=== PATIENT | female | born 1935 | race Caucasian/White ===

== ENCOUNTER 2017-09-11 11:18 | Inpatient (IN) | payer OTHER ==
[2017-09-11 12:54] LABS: BASO # 0.1 K/uL (0.0-0.2); BASO % 0.8 % (0.0-2.0); EOS % 0.1 % (0.0-4.0); HEMOGLOBIN 12.1 g/dL (11.0-16.0); LYMPH # 0.9 K/uL (1.0-4.3); LYMPH % 5.8 % (20.0-40.0); MEAN CELL VOLUME 83.5 fL (81.0-99.0); MEAN CORPUSCULAR HEMOGLOBIN 27.4 pg (27.0-31.0); MEAN CORPUSCULAR HGB CONC 32.8 g/dL (33.0-37.0); MEAN PLATELET VOLUME 8.3 fL (7.2-11.7); MONO # 0.7 K/uL (0.0-0.8); MONO % 4.6 % (0.0-10.0); NEUT # 14.2 K/uL (1.8-7.0); NEUT % 88.7 % (50.0-75.0); PLATELET COUNT 257 K/uL (130-400); RBC 4.42 Mil/uL (3.80-5.20); RED CELL DISTRIBUTION WIDTH 13.9 % (11.5-14.5)
[2017-09-11 13:07] LABS: ALB/GLOB RATIO 1.2 (1.0-2.1); ALBUMIN 4.2 g/dL (3.5-5.0); ALT/SGPT 22 U/L (9-52); AST/SGOT 24 U/L (14-36); BLOOD UREA NITROGEN 14 mg/dL (7-17); CALCIUM 9.2 mg/dl (8.6-10.4); GFR AFRICAN-AMERICAN > 60; GFR NON-AFRICAN AMERICAN > 60
[2017-09-11 13:29] LABS: LYMPHOCYTE 8 % (20-40); MONOCYTE 3 % (0-10); NEUTROPHIL 89 % (50-75); PLATELET ESTIMATE NORMAL (NORMAL); TOTAL CELLS COUNTED 100
--- NOTE | 2017-09-11 13:31 | C.PDOC ---
History Of Present Illness Patient presents to ED with c/o coughing blood since earlier today. Patient states 3 days ago she had cold like symptoms saw PMD, was given Antibiotics and Cough medicine. Patient states coughed and noted blood in phlegm with associated fever. Patient denies chest pain, sob, nausea, vomiting or any other complaints at this time. Time Seen by Provider: 09/11/17 11:51 Chief Complaint (Nursing): Cough, Cold, Congestion History Per: Patient History/Exam Limitations: no limitations Onset/Duration Of Symptoms: Hrs Current Symptoms Are (Timing): Still Present Severity: Moderate Recent travel outside of the [place]: No Past Medical History Reviewed: Historical Data, Nursing Documentation, Vital Signs Vital Signs: Last Vital Signs Temp 98.5 F 09/11/17 17:30 Pulse 67 09/11/17 17:30 Resp 20 09/11/17 17:30 BP 110/65 09/11/17 17:30 Pulse Ox 97 09/11/17 17:30 - Medical History PMH: Asthma, Depression, Gastritis, HTN, Hyperlipidemia, Hypothyroidism, Sleep Apnea Surgical History: No Surg Hx Family History: States: No Known Family Hx - Social History Hx Alcohol Use: No Hx Substance Use: No - Immunization History Hx Tetanus Toxoid Vaccination: No Hx Influenza Vaccination: Yes (01/20/2017) Hx Pneumococcal Vaccination: Yes (07/25/2015) Review Of Systems Constitutional: Positive for: Fever Cardiovascular: Negative for: Chest Pain Respiratory: Positive for: Cough. Negative for: Shortness of Breath Gastrointestinal: Negative for: Nausea, Vomiting Skin: Negative for: Rash Neurological: Negative for: Weakness, Numbness Physical Exam - Physical Exam Appears: Non-toxic, No Acute Distress Skin: Warm, Dry, No Rash Head: Atraumatic, Normacephalic Oral Mucosa: Moist Neck: Normal ROM, Supple Cardiovascular: Rhythm Regular Respiratory: Normal Breath Sounds, No Rales, No Rhonchi, No Wheezing Gastrointestinal/Abdominal: Soft, No Tenderness, No Guarding, No Rebound Extremity: Normal ROM, Capillary Refill (<2 seconds) Neurological/Psych: Oriented x3, Normal Speech, Normal Cognition ED Course And Treatment - Laboratory Results Result Diagrams: 09/11/17 12:46 09/11/17 12:46 O2 Sat by Pulse Oximetry: 98 (RA) Pulse Ox Interpretation: Normal Medical Decision Making Medical Decision Making: Plan: EKG, CXR, Tylenol administered Blood cultures ordered. The case was discussed with Octavia Randhawa who agrees to admit the patient. Disposition - Disposition Disposition: HOSPITALIZED Disposition Time: 13:00 Condition: STABLE - POA Present On Arrival: None - Clinical Impression Clinical Impression: Pneumonia - PA / CREPE [employer]ER / Resident Statement MD/DO has reviewed & agrees with the documentation as recorded. - Scribe Statement The provider has reviewed the documentation as recorded by the Sarahiibpawel Frye All medical record entries made by the Hermes were at my direction and personally dictated by me. I have reviewed the chart and agree that the record accurately reflects my personal performance of the history, physical exam, medical decision making, and the department course for this patient. I have also personally directed, reviewed, and agree with the discharge instructions and disposition.
[2017-09-11 13:35] LABS: B-TYPE NATRIURETIC PEPTIDE 296 pg/mL (0-900)
--- NOTE | 2017-09-11 14:12 | RAD ---
PROCEDURE: CHEST RADIOGRAPH, 1 VIEW HISTORY: SOB, cough COMPARISON: None available. FINDINGS: LUNGS: The lungs are hyperinflated and there is peribronchial thickening with chronic changes in both lungs. There is bibasilar atelectasis. No focal consolidation. PLEURA: No pneumothorax or pleural fluid seen. CARDIOVASCULAR: There is mild cardiomegaly. OSSEOUS STRUCTURES: No significant abnormalities. VISUALIZED UPPER ABDOMEN: Normal. OTHER FINDINGS: None. IMPRESSION: No active pulmonary disease. COPD.
[2017-09-11] MEDS ORDERED: cefTRIAXone IV 1 gm in Dextros 50 ML IV ONE (14:28)
[2017-09-11] MEDS ORDERED: cefTRIAXone IV 1 gm in Dextros 50 ML IVPB ONE (14:50)
[2017-09-11] MEDS ORDERED: Azithromycin 500mg/250ML NS 500 MG/250 ML BAG IV ONE (15:00)
--- NOTE | 2017-09-11 15:02 | CP.PCM.HP ---
History of Present Illness - History of Present Illness History of Present Illness: cc; Chills and blood in sptum PT presented to my office on 5/3 co chills, and coughing up sptum with blood. She was on the last day of a 3 days course of zithromax for bronchitis. PT feels better today less nausea +still sputum with some blood Medical Hx: Memory loss Hyperlipidemia Hypertension Hypothyroidism Acute gastritis Sleep apnea Asthma Diabetes Depression Cerebrovascular disease Surgical Hx: Cataract surgery Tubaligation Family Hx: Daughter Lung issues/ smoker Social Hx: Neg. Smoke Neg. ETOH Neg. Drugs Allergies: none Medications: Hydralazine 100mg Chlotalidone 25mg Omeprazole 20 Levothyroxine 125mcg Aspirin 81mg Xanax 0.25mg Present on Admission - Present on Admission Any Indicators Present on Admission: No Review of Systems - Constitutional Constitutional: Chills - EENT Nose/Mouth/Throat: absent: Nasal Congestion - Cardiovascular Cardiovascular: absent: Chest Pain, Claudication - Respiratory Respiratory: Cough, Change in Mucous Color - Gastrointestinal Gastrointestinal: Nausea. absent: Abdominal Pain - Genitourinary Genitourinary: absent: Change in Urinary Stream Past Patient History - Past Social History Smoking Status: Former Smoker - CARDIAC Hx Hypertension: Yes - PULMONARY Hx Asthma: Yes Hx Sleep Apnea: Yes - NEUROLOGICAL Hx Neurological Disorder: Yes Other/Comment: Cerebrovascular disease - ENDOCRINE/METABOLIC Hx Hypothyroidism: Yes - GASTROINTESTINAL Hx Gastritis: Yes - PSYCHIATRIC Hx Depression: Yes Hx Substance Use: No - SURGICAL HISTORY Hx Cataract Extraction: Yes (2010) Hx Tubal Ligation: Yes (1969) - ANESTHESIA Hx Anesthesia: Yes Hx Anesthesia Reactions: No Meds Allergies/Adverse Reactions: Allergies Allergy/AdvReac Type Severity Reaction Status Date / Time No Known Allergies Allergy Unverified 11/17/13 16:32 Physical Exam - Constitutional Appears: Non-toxic - Eye Exam Eye Exam: Normal appearance - ENT Exam ENT Exam: Mucous Membranes Moist - Respiratory Exam Respiratory Exam: Clear to Auscultation Bilateral - Cardiovascular Exam Cardiovascular Exam: REGULAR RHYTHM. absent: JVD Results - Vital Signs Recent Vital Signs: Last Vital Signs Temp 99.4 F 09/11/17 13:00 Pulse 67 09/11/17 15:00 Resp 20 09/11/17 15:00 BP 115/40 L 09/11/17 15:00 Pulse Ox 97 09/11/17 15:00 - Labs Result Diagrams: 09/11/17 12:46 09/11/17 12:46 Labs: Laboratory Results - last 24 hr 09/11/17 09/11/17 09/11/17 12:46 12:46 12:46 WBC 16.0 H RBC 4.42 Hgb 12.1 Hct 36.9 MCV 83.5 MCH 27.4 MCHC 32.8 L RDW 13.9 Plt Count 257 MPV 8.3 Neut % (Auto) 88.7 H Lymph % (Auto) 5.8 L Brooks % (Auto) 4.6 Eos % (Auto) 0.1 Baso % (Auto) 0.8 Neut # (Auto) 14.2 H Lymph # (Auto) 0.9 L Brooks # (Auto) 0.7 Eos # (Auto) 0.0 Baso # (Auto) 0.1 Neutrophils % (Manual) 89 H Lymphocytes % (Manual) 8 L Monocytes % (Manual) 3 Platelet Estimate Normal Sodium 138 Potassium 3.3 L Chloride 97 L Carbon Dioxide 31 H Anion Gap 14 BUN 14 Creatinine 0.7 Est GFR ( Amer) > 60 Est GFR (Non-Af Amer) > 60 Random Glucose 87 Lactic Acid 2.1 Calcium 9.2 Total Bilirubin 0.6 AST 24 ALT 22 Alkaline Phosphatase 95 Troponin I < 0.0120 NT-Pro-B Natriuret Pep 296 Total Protein 7.8 Albumin 4.2 Globulin 3.6 Albumin/Globulin Ratio 1.2 Assessment & Plan - Assessment and Plan (Free Text) Assessment: Pnemonia wbc 16 not able to keep po admitted 09/11/17 on iv abx doing better cont ivf resume home meds bp stable
[2017-09-11 15:03] LABS: SQUAMOUS EPITHIAL 1 /hpf (0-5); URINE BACTERIA RARE (<OCC)
[2017-09-11 15:04] LABS: URINE BILIRUBIN NEGATIVE (NEGATIVE); URINE BLOOD NEGATIVE (NEGATIVE); URINE CLARITY Clear (Clear); URINE COLOR Yellow (YELLOW); URINE GLUCOSE (UA) NORMAL (Normal); URINE LEUKOCYTE ESTERASE 1+ Leu/uL (Negative); URINE PROTEIN NEGATIVE (NEGATIVE); URINE UROBILINOGEN NORMAL mg/dL (0.2-1.0)
[2017-09-11] MEDS: Potassium Chloride 20 mEq ER Tab PO SCH (15:23)
[2017-09-11] MEDS: Enoxaparin 40 mg Syringe SC SCH (15:24)
[2017-09-11] MEDS: Potassium Chloride 20 MEQ in Sodium Chloride 0.45% 1,000 ML IV SCH (15:39)
[2017-09-11] MEDS ORDERED: Vancomycin 1 gm/NS 200 ml 1 GM/200 ML BAG IVPB ONE (16:00)
[2017-09-11 17:31] VITALS: RESP 20
[2017-09-12] MEDS: Albuterol-Ipratrop 3 mg / 0.5 (3 ml) UD INH SCH ×4 (01:03→19:11)
[2017-09-12] MEDS: Enoxaparin 40 mg Syringe SC SCH (10:03)
[2017-09-12] MEDS: Potassium Chloride 20 mEq ER Tab PO SCH (10:03)
[2017-09-12] MEDS: Potassium Chloride 20 MEQ in Sodium Chloride 0.45% 1,000 ML IV SCH ×2 (11:45→14:37)
[2017-09-12] MEDS ORDERED: Azithromycin 500mg/250ML NS 500 MG/250 ML BAG IVPB SCH (15:00)
[2017-09-12] MEDS: Metoprolol Succinate 50 mg XL Tab PO SCH (15:22)
--- NOTE | 2017-09-12 23:24 | CARD ---
APPROVED REPORT EKG Measurement Heart [id number] <Conclusion> Normal sinus rhythm Baseline artifact Otherwise normal
[2017-09-13 01:21] VITALS: O2SAT 96
[2017-09-13] MEDS: Albuterol-Ipratrop 3 mg / 0.5 (3 ml) UD INH SCH ×3 (02:03→13:44)
[2017-09-13] MEDS: Levothyroxine 125 MCG TAB PO SCH ×2 (06:29→06:31)
[2017-09-13 07:20] LABS: BASO # 0.1 K/uL (0.0-0.2); BASO % 0.8 % (0.0-2.0); EOS # 0.3 K/uL (0.0-0.7); EOS % 3.9 % (0.0-4.0); HEMOGLOBIN 11.8 g/dL (11.0-16.0); LYMPH # 2.4 K/uL (1.0-4.3); LYMPH % 33.5 % (20.0-40.0); MEAN CORPUSCULAR HEMOGLOBIN 27.7 pg (27.0-31.0); MEAN PLATELET VOLUME 7.9 fL (7.2-11.7); MONO # 0.5 K/uL (0.0-0.8); MONO % 7.4 % (0.0-10.0); NEUT # 3.9 K/uL (1.8-7.0); NEUT % 54.4 % (50.0-75.0); NRBC % 0.1 % (0.0-2.0); RBC 4.24 Mil/uL (3.80-5.20); RED CELL DISTRIBUTION WIDTH 13.9 % (11.5-14.5); WHITE BLOOD COUNT 7.2 K/uL (4.8-10.8)
[2017-09-13 07:35] LABS: BLOOD UREA NITROGEN 14 mg/dL (7-17); CALCIUM 9.2 mg/dl (8.6-10.4); GFR AFRICAN-AMERICAN > 60; GFR NON-AFRICAN AMERICAN > 60
[2017-09-13] MEDS: Potassium Chloride 20 MEQ in Sodium Chloride 0.45% 1,000 ML IV SCH (08:00)
[2017-09-13 08:32] VITALS: BP 108/66; PULSE 73; TEMP 98
[2017-09-13] MEDS: Enoxaparin 40 mg Syringe SC SCH (10:45)
[2017-09-13] MEDS: Metoprolol Succinate 50 mg XL Tab PO SCH (10:52)
[2017-09-13] MEDS: Potassium Chloride 20 mEq ER Tab PO SCH (10:52)
--- NOTE | 2017-09-13 12:42 | CP.PCM.DIS ---
Provider - Provider Date of Admission: 09/11/17 14:31 Attending physician: Sintia Dudley MD Time Spent in preparation of Discharge (in minutes): 30 Hospital Course - Lab Results Lab Results: Micro Results 09/11/17 12:00 Blood Blood Culture - Preliminary NO GROWTH AFTER 24 HOURS 09/11/17 13:00 Blood Blood Culture - Preliminary NO GROWTH AFTER 24 HOURS 09/11/17 Unknown Urine Urine Culture - Final No Growth (<1,000 CFU/ML) Most Recent Lab Values WBC 7.2 K/uL (4.8-10.8) D 09/13/17 07:07 RBC 4.24 Mil/uL (3.80-5.20) 09/13/17 07:07 Hgb 11.8 g/dL (11.0-16.0) 09/13/17 07:07 Hct 35.6 % (34.0-47.0) 09/13/17 07:07 MCV 84.0 fL (81.0-99.0) 09/13/17 07:07 MCH 27.7 pg (27.0-31.0) 09/13/17 07:07 MCHC 33.0 g/dL (33.0-37.0) 09/13/17 07:07 RDW 13.9 % (11.5-14.5) 09/13/17 07:07 Plt Count 252 K/uL (130-400) 09/13/17 07:07 MPV 7.9 fL (7.2-11.7) 09/13/17 07:07 Neut % (Auto) 54.4 % (50.0-75.0) 09/13/17 07:07 Lymph % (Auto) 33.5 % (20.0-40.0) 09/13/17 07:07 [place] % (Auto) 7.4 % (0.0-10.0) 09/13/17 07:07 Eos % (Auto) 3.9 % (0.0-4.0) 09/13/17 07:07 Baso % (Auto) 0.8 % (0.0-2.0) 09/13/17 07:07 Neut # (Auto) 3.9 K/uL (1.8-7.0) 09/13/17 07:07 Lymph # (Auto) 2.4 K/uL (1.0-4.3) 09/13/17 07:07 [place] # (Auto) 0.5 K/uL (0.0-0.8) 09/13/17 07:07 Eos # (Auto) 0.3 K/uL (0.0-0.7) 09/13/17 07:07 Baso # (Auto) 0.1 K/uL (0.0-0.2) 09/13/17 07:07 Neutrophils % (Manual) 89 % (50-75) H 09/11/17 12:46 Lymphocytes % (Manual) 8 % (20-40) L 09/11/17 12:46 Monocytes % (Manual) 3 % (0-10) 09/11/17 12:46 Platelet Estimate Normal (NORMAL) 09/11/17 12:46 Sodium 144 mmol/L (132-148) 09/13/17 07:07 Potassium 4.4 mmol/L (3.6-5.2) 09/13/17 07:07 Chloride 101 mmol/L (98-107) 09/13/17 07:07 Carbon Dioxide 34 mmol/L (22-30) H 09/13/17 07:07 Anion Gap 13 (10-20) 09/13/17 07:07 BUN 14 mg/dL (7-17) 09/13/17 07:07 Creatinine 0.6 mg/dL (0.7-1.2) L 09/13/17 07:07 Est GFR ( Amer) > 60 09/13/17 07:07 Est GFR (Non-Af Amer) > 60 09/13/17 07:07 Random Glucose 96 mg/dL (65-105) 09/13/17 07:07 Lactic Acid 2.1 mmol/L (0.7-2.1) 09/11/17 12:46 Calcium 9.2 mg/dl (8.6-10.4) 09/13/17 07:07 Magnesium 2.0 mg/dL (1.6-2.3) 09/13/17 07:07 Total Bilirubin 0.6 mg/dL (0.2-1.3) 09/11/17 12:46 AST 24 U/L (14-36) 09/11/17 12:46 ALT 22 U/L (9-52) 09/11/17 12:46 Alkaline Phosphatase 95 U/L (38-126) 09/11/17 12:46 Troponin I < 0.0120 ng/mL (0.00-0.120) 09/11/17 12:46 NT-Pro-B Natriuret Pep 296 pg/mL (0-900) 09/11/17 12:46 Total Protein 7.8 g/dL (6.3-8.3) 09/11/17 12:46 Albumin 4.2 g/dL (3.5-5.0) 09/11/17 12:46 Globulin 3.6 gm/dL (2.2-3.9) 09/11/17 12:46 Albumin/Globulin Ratio 1.2 (1.0-2.1) 09/11/17 12:46 Urine Color Yellow (YELLOW) 09/11/17 14:43 Urine Clarity Clear (Clear) 09/11/17 14:43 Urine pH 8.0 (5.0-8.0) 09/11/17 14:43 Ur Specific [place] 1.012 (1.003-1.030) 09/11/17 14:43 Urine Protein Negative mg/dL (NEGATIVE) 09/11/17 14:43 Urine Glucose (UA) Normal mg/dL (Normal) 09/11/17 14:43 Urine Ketones Negative mg/dL (NEGATIVE) 09/11/17 14:43 Urine Blood Negative (NEGATIVE) 09/11/17 14:43 Urine Nitrate Negative (NEGATIVE) 09/11/17 14:43 Urine Bilirubin Negative (NEGATIVE) 09/11/17 14:43 Urine Urobilinogen Normal mg/dL (0.2-1.0) 09/11/17 14:43 Ur Leukocyte Esterase 1+ Adrianna/uL (Negative) H 09/11/17 14:43 Urine WBC (Auto) 10 /hpf (0-5) H 09/11/17 14:43 Urine RBC (Auto) 1 /hpf (0-3) 09/11/17 14:43 Ur Squamous Epith Cells 1 /hpf (0-5) 09/11/17 14:43 Urine Bacteria Rare (<OCC) 09/11/17 14:43 - Hospital Course Hospital Course: Pt was admitted with productive cough of bloody sptum, wbc of 16,ooo, nausea and inability to keep food down. Pt had faiiled a course of po antibiotics. Pt was admitted, hydrated, potassium repleased and treated with iv ABNX. THe wbc normalized, she felt better with no sob and was able to resume a regular diet. Hydralazine discontinued due to bp. Discharge Exam - Head Exam Head Exam: NORMAL INSPECTION - Eye Exam Eye Exam: Normal appearance - ENT Exam ENT Exam: Mucous Membranes Moist - Respiratory Exam Respiratory Exam: Clear to PA & Lateral, NORMAL BREATHING PATTERN. absent: Wheezes - Cardiovascular Exam Cardiovascular Exam: REGULAR RHYTHM, RRR, +S1, +S2. absent: JVD - GI/Abdominal Exam GI & Abdominal Exam: Normal Bowel Sounds, Soft. absent: Tenderness Discharge Plan - Follow Up Plan Condition: STABLE Instructions: Community Acquired Pneumonia (DC), Bacterial Pneumonia (DC)
[2017-09-13] MEDS ORDERED: Pneumococcal 23-Valent Vaccine IM ONE (13:45)
[2017-09-14] MEDS ORDERED: Pneumococcal 23-Valent Vaccine IM ONE (10:00)
== END 2017-09-13 14:35 | disposition home or self-care (01) | DRG 195 ==
LOC: C.ER 11:18 → C.3T 14:31 → C.9E 14:31
PROVIDERS: ADMIT Internal Medicine; ATTEND Internal Medicine
DX: J18.9 Pneumonia, unspecified organism (principal); J45.909 Unspecified asthma, uncomplicated; I10 Essential (primary) hypertension; G47.30 Sleep apnea, unspecified; E78.5 Hyperlipidemia, unspecified; E03.9 Hypothyroidism, unspecified; F32.9 Major depressive disorder, single episode, unspecified; R41.3 Other amnesia; E11.9 Type 2 diabetes mellitus without complications; Z83.6 Family history of other diseases of the respiratory system; Z79.82 Long term (current) use of aspirin; Z87.891 Personal history of nicotine dependence; Z87.898 Personal history of other specified conditions